=== PATIENT | male | born 1970 | race Caucasian/White ===

== ENCOUNTER 2021-10-22 10:42 | Emergency (ER) | payer OTHER ==
[2021-10-22] MEDS ORDERED: DIAZEPAM 10 MG/2 ML INJ SYRINGE ONE (11:33)
[2021-10-22] MEDS ORDERED: KETOROLAC 30 MG/ML INJ ONE (11:33)
--- NOTE | 2021-10-22 12:25 | RAD REPORT ---
EXAM DESCRIPTION: RAD - Shoulder Left 2 View - 10/22/2021 11:48 am CLINICAL HISTORY: PAIN COMPARISON: No comparisons FINDINGS: No fracture or dislocation is seen.
--- NOTE | 2021-10-22 12:44 | ER ---
Nurse's Notes [facility] Name: Jarod Gibbs Age: 51 yrs Sex: Male : 1970 Arrival Date: 10/22/2021 Time: 10:44 Bed 2 Private MD: Diagnosis: Strain of muscle, fascia and tendon at neck level, initial encounter-left;Strain of other muscles, fascia and tendons at shoulder and upper arm level, left arm Presentation: 10/22 11:05 Chief complaint: Patient states: "I pulled something in my neck/shoulder on Wednesday ss unloading a BBQ pit." Pt c/o pain and decreased ROM to L side of neck and L shoulder. Coronavirus screen: Client denies travel out of the [place] in the last 14 days. Ebola Screen: Patient denies exposure to infectious person. Patient denies travel to an Ebola-affected area in the 21 days before illness onset. Initial Sepsis Screen: Does the patient meet any 2 criteria? No. Patient's initial sepsis screen is negative. Does the patient have a suspected source of infection? No. Patient's initial sepsis screen is negative. Risk Assessment: Do you want to hurt yourself or someone else? Patient reports no desire to harm self or others. Onset of symptoms was October 20, 2021. 11:05 Method Of Arrival: Ambulatory ss 11:05 Acuity: MARTELL 4 ss Historical: - Allergies: 11:06 Sulfa (Sulfonamide Antibiotics); ss 11:06 Iodine; ss - Home Meds: 11:06 None [Active]; ss - PMHx: 11:06 None; ss - PSHx: 11:06 back; ankle; wrist; hand; ss - Immunization history:: Adult Immunizations up to date. - Social history:: Smoking status: Patient reports the use of cigarette tobacco products, smokes one-half pack cigarettes per day. Screenin:13 Abuse screen: Denies threats or abuse. Denies injuries from another. Nutritional ss screening: No deficits noted. Tuberculosis screening: Never had TB. Fall Risk None identified. Assessment: 11:30 General: Appears uncomfortable, Behavior is calm, cooperative. Pain: Complains of pain aa5 in left shoulder and left side of neck Pain currently is 6 out of 10 on a pain scale. Quality of pain is described as sharp, Is continuous, Noted to be resistant to movement. Neuro: Level of Consciousness is awake, alert, obeys commands, Oriented to person, place, time, situation. Cardiovascular: Patient's skin is warm and dry. Respiratory: Airway is patent Respiratory effort is even, unlabored, Respiratory pattern is regular, symmetrical. GI: No signs and/or symptoms were reported involving the gastrointestinal system. : No signs and/or symptoms were reported regarding the genitourinary system. EENT: No signs and/or symptoms were reported regarding the EENT system. Derm: Skin is pink, warm \\T\\ dry. Musculoskeletal: Range of motion: intact in all extremities. 11:46 Reassessment: Pt in radiology. aa5 13:28 Reassessment: Patient is alert, oriented x 3, equal unlabored respirations, skin aa5 warm/dry/pink. Patient states feeling better. Patient states symptoms have improved. Vital Signs: 11:04 BP 148 / 98; Pulse 72; Resp 15; Temp 99.1(TE); Pulse Ox 99% on R/A; Weight 90.72 kg; ss Height 6 ft. 0 in. (182.88 cm); Pain 6/10; 11:04 Body Mass Index 27.12 (90.72 kg, 182.88 cm) ss ED Course: 10:44 Patient arrived in ED. as 11:06 Triage completed. ss 11:06 Arm band placed on right wrist. ss 11:10 Dieudonne Lamas PA is PHCP. cp 11:10 Stephan Lambert MD is Attending Physician. cp 11:13 Patient has correct armband on for positive identification. ss 11:17 Nan Villalobos, NIVIA is Primary Nurse. aa5 11:47 XRAY Shoulder LEFT 2 view In Process Unspecified. EDMS 13:28 No provider procedures requiring assistance completed. Patient did not have IV access aa5 during this emergency room visit. Administered Medications: 11:33 Drug: Ketorolac 30 mg Route: IM; Site: left gluteus; aa5 12:00 Follow up: Response: No adverse reaction aa5 11:34 Drug: Diazepam 5 mg Route: IM; Site: right gluteus; aa5 12:00 Follow up: Response: No adverse reaction aa5 Outcome: 12:43 Discharge ordered by . cp 13:28 Discharged to home ambulatory, with significant other. aa5 13:28 Condition: improved 13:28 Discharge instructions given to patient, Instructed on discharge instructions, follow up and referral plans. medication usage, Demonstrated understanding of instructions, follow-up care, medications, Prescriptions given X 3. 13:30 Patient left the ED. aa5 Signatures: Dispatcher [employer] EDMS Tila Armstrong Audri, RN RN aa5 Randa Nunez RN RN ss Dieudonne Lamas, PA PA cp Corrections: (The following items were deleted from the chart) 11:07 11:06 Allergies: No Known Allergies; [facility] 13:49 13:49 Patient left the ED. aa5 aa5
--- NOTE | 2021-10-22 12:44 | EDPHYS ---
Physician Documentation [facility] Name: Jarod Gibbs Age: 51 yrs Sex: Male : 1970 Arrival Date: 10/22/2021 Time: 10:44 Bed 2 Private MD: ED Physician Stephan Lambert HPI: 10/22 11:30 This 51 yrs old Male presents to ER via Ambulatory with complaints of Shoulder Pain, cp Neck Pain, >24Hrs Old. 11:30 The patient or guardian complains of pain, that is acute. left shoulder and left cp trapezius. Context: resulted from lifting or carrying, metal BBQ grill, The patient experiences decreased range of motion, when attempts to raise arm, The patient reports no obvious deformity. Onset: The symptoms/episode began/occurred 2 day(s) ago. Modifying factors: The symptoms are aggravated by rotation of arm, raising/lifting arm. Associated signs and symptoms: The patient has no apparent associated signs or symptoms. Treatment prior to arrival includes: no previous treatment. Historical: - Allergies: 11:06 Sulfa (Sulfonamide Antibiotics); ss 11:06 Iodine; ss - Home Meds: 11:06 None [Active]; ss - PMHx: 11:06 None; ss - PSHx: 11:06 back; ankle; wrist; hand; ss - Immunization history:: Adult Immunizations up to date. - Social history:: Smoking status: Patient reports the use of cigarette tobacco products, smokes one-half pack cigarettes per day. ROS: 11:35 Constitutional: Negative for body aches, chills, fever, poor PO intake. cp 11:35 Eyes: Negative for injury, pain, redness, and discharge. cp 11:35 ENT: Negative for drainage from ear(s), ear pain, sore throat, difficulty swallowing, difficulty handling secretions. 11:35 Neck: Positive for pain with movement, pain at rest, stiffness, tenderness, of the left lateral neck, Negative for bony tenderness. 11:35 Cardiovascular: Negative for chest pain, edema, palpitations. 11:35 Respiratory: Negative for cough, orthopnea, shortness of breath. 11:35 Abdomen/GI: Negative for abdominal pain, nausea, vomiting, and diarrhea. 11:35 Back: Negative for pain at rest, radiated pain. 11:35 Skin: Negative for cellulitis, rash. 11:35 Neuro: Negative for altered mental status, headache, numbness, tingling, weakness. 11:35 All other systems are negative. Exam: 11:40 Constitutional: The patient appears in no acute distress, alert, awake, cp non-diaphoretic, non-toxic, well developed, well nourished, uncomfortable. 11:40 Head/Face: Normocephalic, atraumatic. cp 11:40 Eyes: Periorbital structures: appear normal, Conjunctiva: normal, no exudate, no injection, Sclera: no appreciated abnormality, Lids and lashes: appear normal, bilaterally. 11:40 ENT: External ear(s): are unremarkable, Nose: is normal, Mouth: Lips: moist, Oral mucosa: pink and intact, moist, Posterior pharynx: Airway: no evidence of obstruction, patent. 11:40 Neck: C-spine: vertebral tenderness, is not appreciated, crepitus, is not appreciated, ROM/movement: pain, that is moderate, with rotation to the left, limited range of motion, that is mild, when rotating to the left, Meningeal signs: are not present, nuchal rigidity, is not appreciated. 11:40 Chest/axilla: Inspection: normal, Palpation: is normal, no crepitus, no tenderness. 11:40 Cardiovascular: Rate: normal, Rhythm: regular, Heart sounds: murmur, not appreciated, Edema: is not appreciated, JVD: is not appreciated. 11:40 Respiratory: the patient does not display signs of respiratory distress, Respirations: normal, no use of accessory muscles, no retractions, labored breathing, is not present, Breath sounds: are clear throughout, no decreased breath sounds, no stridor, no wheezing. 11:40 Abdomen/GI: Exam negative for discomfort, distension, guarding, Inspection: abdomen appears normal. 11:40 Back: pain, that is moderate, of the left trapezius and left scapular area. 11:40 Musculoskeletal/extremity: Extremities: grossly normal except: noted in the left shoulder: decreased ROM, pain, tenderness, ROM: limited passive range of motion due to pain, in the left shoulder, Pulses: noted to be 2+ in the right radial artery and left radial artery, the left hand and left arm Sensation intact. Vital Signs: 11:04 BP 148 / 98; Pulse 72; Resp 15; Temp 99.1(TE); Pulse Ox 99% on R/A; Weight 90.72 kg; ss Height 6 ft. 0 in. (182.88 cm); Pain 6/10; 11:04 Body Mass Index 27.12 (90.72 kg, 182.88 cm) ss MDM: 11:16 Patient medically screened. cp 12:00 Differential diagnosis: strain, rotator cuff injury, dislocation. cp 12:43 Data reviewed: vital signs, nurses notes, radiologic studies, plain films. cp 12:43 Test interpretation: by ED physician or midlevel provider: plain radiologic studies. cp Counseling: I had a detailed discussion with the patient and/or guardian regarding: the historical points, exam findings, and any diagnostic results supporting the discharge/admit diagnosis, radiology results, the need for outpatient follow up, a family practitioner, to return to the emergency department if symptoms worsen or persist or if there are any questions or concerns that arise at home. Response to treatment: the patient's symptoms have markedly improved after treatment, and as a result, I will continue to observe the patient. 10/22 11:18 Order name: XRAY Shoulder LEFT 2 view; Complete Time: 12:36 cp 10/22 12:36 Interpretation: Report reviewed. cp Administered Medications: 11:33 Drug: Ketorolac 30 mg Route: IM; Site: left gluteus; aa5 12:00 Follow up: Response: No adverse reaction aa5 11:34 Drug: Diazepam 5 mg Route: IM; Site: right gluteus; aa5 12:00 Follow up: Response: No adverse reaction aa5 Disposition Summary: 10/22/21 12:43 Discharge Ordered Location: Home cp Problem: new cp Symptoms: have improved cp Condition: Stable cp Diagnosis - Strain of muscle, fascia and tendon at neck level, initial encounter - left cp - Strain of other muscles, fascia and tendons at shoulder and upper arm level, left cp arm Followup: cp - With: Private Physician - When: 2 - 3 days - Reason: Recheck today's complaints Discharge Instructions: - Discharge Summary Sheet cp - Muscle Strain cp Forms: - Work release form ss - Medication Reconciliation Form cp - Thank You Letter cp - Antibiotic Education cp - Prescription Opioid Use cp Prescriptions: - Lidoderm 5 % Topical adhesive patch,medicated - apply 1 patch by TOPICAL route once daily; 20 patch; Refills: 0, Product cp Selection Permitted - Cyclobenzaprine 10 mg Oral Tablet - take 1 tablet by ORAL route every 8 hours As needed; 30 tablet; Refills: 0, cp Product Selection Permitted - Diclofenac Sodium 75 mg Oral Tablet Sustained Release - take 1 tablet by ORAL route 2 times per day; 30 tablet; Refills: 0, Product cp Selection Permitted Signatures: Dispatcher [employer] Nan Killian RN RN aa5 Randa Nunez RN RN ss Dieudonne Lamas, RIVERA PA cp Corrections: (The following items were deleted from the chart) 11:07 11:06 Allergies: No Known Allergies; ss
[2021-10-22 13:55] VITALS: BP 148/98; TEMP 99.1; O2SAT 99
== END 2021-10-22 13:49 | disposition home or self-care (01) ==
LOC: ER 10:42
DX: S16.1XXA Strain of muscle, fascia and tendon at neck level, initial encounter (principal); S46.812A Strain of other muscles, fascia and tendons at shoulder and upper arm level, left arm, initial encounter; F17.210 Nicotine dependence, cigarettes, uncomplicated; Z88.2 Allergy status to sulfonamides; Z91.048 Other nonmedicinal substance allergy status
CPT/HCPCS: 73030; 96372; 99283; J3360